=== PATIENT | male | born 1945 | race Caucasian/White ===

== ENCOUNTER 2020-12-05 15:00 | Outpatient (CLI) | payer MEDICARE, SELFPAY ==
--- NOTE | ~2020-12-05 | XR_ITS ---
EXAMINATION: XR shoulder LT min 2V DATE: 12/05/2020 15:31 INDICATION: Left shoulder pain TECHNIQUE: AP internally and externally rotated, AP oblique externally rotated and transscapular Y vi ews of the left shoulder were obtained. COMPARISON: None FINDINGS: Normal alignment. No fracture.Mild glenohumeral osteoarthritis with relatively preserved joint space . Small marginal osteophytes along the humeral head and glenoid. Moderate acromioclavicular joint ost eoarthritis with small inferiorly directed osteophytes. Visualized portions of the lungs are clear. S oft tissues are unremarkable. IMPRESSION: Mild glenohumeral and moderate acromioclavicular osteoarthritis. Reviewed, dictated and finalized at location B. FACER
--- NOTE | ~2020-12-05 | XR_ITS ---
EXAMINATION: XR chest 2V DATE: 12/05/2020 15:31 INDICATION: Shortness of breath post COVID. TECHNIQUE: PA and lateral views of the chest were obtained. COMPARISON: Chest radiograph dated 08/24/2019 FINDINGS: The lungs remain clear with no focal airspace opacities, pulmonary edema, pleural effusion or pneumot horax. The cardiomediastinal silhouette is normal. Mild to moderate thoracic spondylosis with chronic mild anterior wedging of a couple mid thoracic vertebral bodies. There are bridging osteophytes at m ultiple levels in the spine, consistent with diffuse idiopathic skeletal hyperostosis (DISH). IMPRESSION: 1. No acute cardiopulmonary disease. Reviewed, dictated and finalized at location B. L MOLDER
--- NOTE | ~2020-12-05 | XR_ITS ---
EXAMINATION:XR_[id number] DATE: 12/05/2020 15:31 INDICATION: Neck pain TECHNIQUE: AP, lateral, lateral swimmers and odontoid views of the cervical spine are provided. COMPARISON: None FINDINGS: Alignment is normal. The odontoid is intact. No fracture is identified. The vertebral body heights are normal. There is moderate loss of intervertebral disc space height throughout the cervica l spine. There is mild multilevel facet osteoarthritis. Prevertebral soft tissues are normal. IMPRESSION: 1. Mild to moderate cervical spondylosis without acute findings. Reviewed, dictated and finalized at location A. [employer]
[2020-12-05 19:00] LABS: CRP < 0.5 mg/dL (<1.0)
[2020-12-05 19:03] LABS: Erythrocyte Sedimentation Rate 7 mm/hr (0-20)
== END 2020-12-05 15:01 | disposition home or self-care (01) ==
LOC: ANHBWCIMG 15:03
PROVIDERS: PCP Family Medicine; Visit Provider Family Medicine
DX: F17.200 Nicotine dependence, unspecified, uncomplicated (principal); K13.79 Other lesions of oral mucosa; R51.9 Headache, unspecified; M47.22 Other spondylosis with radiculopathy, cervical region; M19.012 Primary osteoarthritis, left shoulder
CPT/HCPCS: 36415; 71046; 72040; 73030; 85652; 86140; 86695; 86696

== ENCOUNTER 2021-01-07 07:46 | Outpatient (CLI) | payer MEDICARE, SELFPAY ==
[2021-01-07 18:41] LABS: Basophils Percent Auto 0.5 % (0.2-1.2); Eosinophils Absolute Auto 0.1 K/mm3 (0-0.3); Eosinophils Percent Auto 1.3 % (0-4.4); Hematocrit 46.3 % (42.0-52.0); Hemoglobin 15.2 g/dL (14.0-18.0); Immature Granulocyte Absolute 0.02 K/mm3 (0.00-0.031); Immature Granulocyte Percent A 0.3 % (0-0.5); Lymphocytes Percent Auto 32.3 % (18.3-44.2); Mean Corpuscular HGB Conc 32.8 g/dl (32-36); Mean Corpuscular Hemoglobin 30.5 pg (26-34); Mean Corpuscular Volume 92.8 fl (80-100); Mean Platelet Volume 10.6 fl (7.4-10.4); Monocytes Absolute Auto 0.5 K/mm3 (0.1-0.6); Monocytes Percent Auto 6.7 % (2.6-8.5); Neutrophils Absolute Auto 4.4 K/mm3 (1.3-6.7); Neutrophils Percent Auto 58.9 % (45.5-73.1); Nucleated Red Blood Cells Perc 0.3 % (0.0-0.2); Platelet Count Result 216 k/mm3 (150-375); Red Blood Count 4.99 M/mm3 (4.6-6.20); Red Cell Distribution Width 14.6 % (11.5-14.5); White Blood Count 7.4 K/mm3 (4.5-10.0)
[2021-01-07 18:47] LABS: Add Urine Microscopic? YES; Appearance Urine Clear (Clear); Bilirubin Urine Negative (Negative); Blood Urine Negative (Negative); Color Urine Yellow (Yellow); Glucose Urine UA Negative (Negative); Ketones Urine Trace mg/dL (Negative); Leukocyte Esterase Ur Negative LEU/UL (Negative); Mucus Urine Rare /lpf; Nitrate Urine Negative (Negative); Protein Urine Negative (Negative); RBC Urine 0-2 /hpf (0-2); Specific Grav Ur 1.014 (1.001-1.035); Squamous Epithelial Cell Urine Rare /hpf (Few); Urobilinogen Urine Negative mg/dL (<2.0); WBC Urine 0-3 /hpf
[2021-01-07 18:49] LABS: Alanine Aminotransferase 16 U/L (4-50); Albumin Level 4.1 g/dL (3.5-5.1); Alkaline Phosphatase 83 U/L (38-126); Anion Gap 2 mmol/L (8-16); Aspartate Amino Transferase 24 U/L (17-59); Bilirubin,Total 0.7 mg/dL (0.2-1.3); Blood Urea Nitrogen 12 mg/dL (9-20); Calcium 8.9 mg/dL (8.4-10.2); Carbon Dioxide 29 mmol/L (22-30); Chloride 108 mmol/L (98-107); Cholesterol 155 mg/dL (0-200); Estimated Glomerular Filt Rate > 60; Glucose 94 mg/dL (75-110); HDL Direct 53 mg/dL; Potassium 4.6 mmol/L (3.4-5.0); Sodium 139 mmol/L (137-145); Triglycerides 57 mg/dL (<150)
[2021-01-07 19:05] LABS: Vitamin D 25 Hydroxy 47.1 ng/mL
[2021-01-07 19:06] LABS: LDL Cholesterol Direct 95 mg/dL
[2021-01-07 19:26] LABS: Prostate Specific Antigen 1.2 ng/mL (< OR = 4.0)
[2021-01-07 20:01] LABS: Folic Acid 12.8 ng/mL (2.76->20)
== END 2021-01-07 07:47 | disposition home or self-care (01) ==
PROVIDERS: PCP Family Medicine; Visit Provider Family Medicine
DX: R25.1 Tremor, unspecified (principal); F17.200 Nicotine dependence, unspecified, uncomplicated; R41.3 Other amnesia; R41.9 Unspecified symptoms and signs involving cognitive functions and awareness; Z13.9 Encounter for screening, unspecified; Z82.62 Family history of osteoporosis; Z79.899 Other long term (current) drug therapy; Z12.5 Encounter for screening for malignant neoplasm of prostate
CPT/HCPCS: 36415; 80053; 80061; 81001; 82306; 82607; 82746; 84153; 84443; 85025; G0103

== ENCOUNTER 2021-02-25 07:36 | Outpatient (CLI) | payer MEDICARE, SELFPAY ==
[2021-02-25 20:09] LABS: CRP 0.6 mg/dL (<1.0)
[2021-02-25 21:06] LABS: Erythrocyte Sedimentation Rate 5 mm/hr (0-20)
[2021-02-28 08:44] LABS: LH 4.8 mIU/mL (1.6-15.2)
[2021-02-28 13:27] LABS: Testosterone Free 46.6 pg/mL (30.0-135.0); Testosterone Total 405 ng/dL (250-1100)
[2021-02-28 16:40] LABS: EBV Nuclear Ab Interpretation Past; EBV Virus Capsid Ag IgG Ab >750.00 U/mL (<18.00); EBV Virus Capsid Ag IgM Ab <36.00 U/mL (<36.00)
== END 2021-02-25 07:37 | disposition home or self-care (01) ==
PROVIDERS: PCP Family Medicine; Visit Provider Family Medicine
DX: R41.9 Unspecified symptoms and signs involving cognitive functions and awareness (principal); N99.89 Other postprocedural complications and disorders of genitourinary system; R51.9 Headache, unspecified; R41.3 Other amnesia; R53.83 Other fatigue; M19.90 Unspecified osteoarthritis, unspecified site
CPT/HCPCS: 36415; 83002; 84402; 84403; 85652; 86140; 86664; 86665

== ENCOUNTER 2021-03-27 08:22 | Emergency (ER) | payer MEDICARE, SELFPAY ==
[2021-03-27] VITALS (14 sets, daily range): BP systolic 116–142; BP diastolic 75–94; PULSE 58–75; RESP 12–20; TEMP 36.9; O2SAT 98–100
--- NOTE | ~2021-03-27 | XR_ITS ---
EXAMINATION: XR chest 1V 03/27/2021 09:10 INDICATION: Dyspnea. PROCEDURE: PA view of the chest COMPARISON: 12/05/2020 FINDINGS: The lungs are clear. The cardiomediastinal silhouette is within normal limits. There are no pleural effusions. There is no pneumothorax suspected. IMPRESSION: 1: NO ACUTE CARDIOPULMONARY DISEASE. Reviewed, dictated and finalized at location B.
--- NOTE | ~2021-03-27 | CT_ITS ---
EXAMINATION: CT brain wo con DATE: 03/27/2021 09:07 INDICATION: Lump behind left ear TECHNIQUE: Computed tomography (CT) of the head was performed without intravenous contrast. The dose- length product was 681.00 mGy-cm. Automated exposure control and iterative reconstruction technique w ere employed. COMPARISON: None FINDINGS: No acute intracranial hemorrhage, infarction, mass or mass effect. No ventriculomegaly or m idline shift. Basilar cisterns are patent. There are scattered mild periventricular and subcortical w aleksandar matter changes, most likely related to small vessel ischemic disease (microangiopathy). No ventr iculomegaly or midline shift. Basilar cisterns are patent. There is mild mucosal thickening of the ri ght sphenoid sinus. Small left mastoid effusion. No depressed skull fracture. No mass identified johnny cent to the ears. IMPRESSION: 1. No acute intracranial abnormality. 2: Mild sinus disease. Small left mastoid effusion. Reviewed, dictated and finalized at location B.
--- NOTE | 2021-03-27 08:51 | ED.GENADULT ---
HPI - General Adult General Chief complaint: Unspecified Stated complaint: knot on back on head, causing headache Time Seen by Provider: 03/27/21 08:49 Source: patient, family and RN notes reviewed Mode of arrival: ambulatory Limitations: no limitations History of Present Illness HPI narrative: Patient 75 years old white male brought to the emergency room by his from home who is telling me that she noticed a lump behind left ear for the last 2 days. Patient denies any trauma, pain, fever, chills, nausea, vomiting, headache, or ear pain, Patient been feeling lousy since had COVID-19 infection November 2020. Patient been fully vaccinated for COVID-19 since December 2020. Patient does not take medicine at home. He smokes, drinks, does not use drugs. Related Data Allergies Allergy/AdvReac Type Severity Reaction Status Date / Time No Known Allergies Allergy Unverified 03/13/21 15:42 Review of Systems Review of Systems: Narrative: CONSTITUTIONAL: Denies fever, chills, or sweats. EYES: Denies visual changes, redness, or discharge. ENT: Denies rhinorrhea, congestion, sore throat, or otalgia. CARDIOVASCULAR: Denies chest pain, palpitations, or edema. RESPIRATORY: Denies cough or dyspnea. GASTROINTESTINAL: Denies abdominal pain, nausea, vomiting, or diarrhea. GENITOURINARY: Denies dysuria or hematuria. SKIN: Denies rash or itching. MUSCULOSKELETAL: Denies back pain, joint pain, or myalgia. NEUROLOGIC: Denies headache, numbness, or weakness. PSYCHIATRIC: Denies anxiety or depression. [facility] Past Medical History Medical History (Updated 03/27/21 @ 10:37 by Clarence Carlton MD) DISH (diffuse idiopathic skeletal hyperostosis) DISH (diffuse idiopathic skeletal hyperostosis) Surgical History Surgical History H/O hernia repair H/O knee surgery H/O shoulder surgery Family History Family History Father Family history of Parkinson's disease Social History Social History Smoking packs per day: 1 Smoking cigarettes per day: 20.0 Years smoked: 50 Smoking pack-years: 50.00 Smoking status: Current every day smoker Tobacco type: cigarettes Second hand tobacco smoke exposure: No Alcohol intake: never Substance use: current Exam Narrative: Exam Narrative: General appearance: Well-developed, well-nourished Skin: Normal color Head: Normocephalic, nontraumatic, large right mastoid area, no tenderness, no redness, no discharge, no warmth, no lymphadenopathy Eyes: Clear conjunctiva ENT: Oropharynx normal, ears normal, nose normal Neck: Supple, nontender Chest and respiratory: Airway patent, no respiratory distress, no accessory muscle use Heart: Regular rate/rhythm Abdomen: Soft, nontender, no organomegaly, quiet bowel sounds Vascular: Normal peripheral pulses, normal capillary refill. Musculoskeletal: Normal range of motion, nontender back Neurologic: Alert and oriented ?3, FAMILY MEDICINE PHYSICIAN ASSISTANT is normal as tested, no gross motor deficit Course Course Emergency Course: Stable Reevaluation(s) Reevaluation #1: Patient does not want to wait until we get hold of the ENT. My plan to discharge him on clindamycin and to follow-up with Dr. Abreu as outpatient. Date: 03/27/21 Time: 11:04 Vital Signs Vital signs: Vital Signs Pulse Rate 61 03/27/21 08:39 Respiratory Rate 20 03/27/21 08:39 Pulse Oximetry 100 03/27/21 08:39 Temperature 36.9 C 03/27/21 08:40 Pulse Rate 75 03/27/21 10:41 Respiratory Rate 12 03/27/21 10:41 Blood Pressure 142/77 H 03/27/21 10:41 Pulse Oximetry 98 06
[2021-03-27 09:50] LABS: Basophils Percent Auto 0.3 % (0.2-1.2); Eosinophils Absolute Auto 0.1 K/mm3 (0-0.3); Eosinophils Percent Auto 1.4 % (0-4.4); Hematocrit 45.7 % (42.0-52.0); Immature Granulocyte Percent A 1.4 % (0-0.5); Lymphocytes Absolute Auto 1.67 K/mm3 (0.9-3.2); Lymphocytes Percent Auto 23.1 % (18.3-44.2); Mean Corpuscular HGB Conc 32.8 g/dl (32-36); Mean Corpuscular Hemoglobin 30.1 pg (26-34); Mean Corpuscular Volume 91.8 fl (80-100); Monocytes Absolute Auto 0.6 K/mm3 (0.1-0.6); Monocytes Percent Auto 7.6 % (2.6-8.5); Neutrophils Absolute Auto 4.8 K/mm3 (1.3-6.7); Neutrophils Percent Auto 66.2 % (45.5-73.1); Platelet Count Result 162 k/mm3 (150-375); Red Blood Count 4.98 M/mm3 (4.6-6.20); Red Cell Distribution Width 13.9 % (11.5-14.5); White Blood Count 7.2 K/mm3 (4.5-10.0)
[2021-03-27 09:55] LABS: Alanine Aminotransferase 20 U/L (4-50); Albumin Level 4.5 g/dL (3.5-5.1); Alkaline Phosphatase 74 U/L (38-126); Anion Gap 8 mmol/L (8-16); Aspartate Amino Transferase 29 U/L (17-59); Bilirubin,Total 0.9 mg/dL (0.2-1.3); Blood Urea Nitrogen 13 mg/dL (9-20); Calcium 8.8 mg/dL (8.4-10.2); Carbon Dioxide 26 mmol/L (22-30); Chloride 107 mmol/L (98-107); Estimated CRCL calculation 73 ml/min; Estimated Glomerular Filt Rate > 60; Glucose 89 mg/dL (75-110); Potassium 3.9 mmol/L (3.4-5.0); Sodium 141 mmol/L (137-145)
--- NOTE | 2021-03-27 10:39 | PC.NURSE ---
ERP updated patient. Pt. is angry stating you guys aren't doing shit for me. I'm fucking leaving Pt. was told that they were being referred out to an ENT specialist for their left ear swelling. Pt. ripping themselves off the monitor continuing to swear at staff. Pt. told this will not be tolerated.
== END 2021-03-27 11:06 | disposition home or self-care (01) ==
PROVIDERS: Emergency Provider Emergency Medicine; PCP Family Medicine
DX: H74.92 Unspecified disorder of left middle ear and mastoid (principal); F17.210 Nicotine dependence, cigarettes, uncomplicated
CPT/HCPCS: 36415; 70450; 71045; 80053; 85025; 99284

== ENCOUNTER 2021-12-10 10:04 | Outpatient (CLI) | payer MEDICARE, SELFPAY ==
[2021-12-10 19:30] LABS: Hematocrit 46.9 % (42.0-52.0); Hemoglobin 15.6 g/dL (14.0-18.0); Mean Corpuscular HGB Conc 33.3 g/dl (32-36); Mean Corpuscular Hemoglobin 30.6 pg (26-34); Mean Platelet Volume 10.5 fl (7.4-10.4); Platelet Count Result 200 k/mm3 (150-375); Red Cell Distribution Width 13.6 % (11.5-14.5)
[2021-12-10 19:44] LABS: Alanine Aminotransferase 15 U/L (4-50); Albumin Level 4.4 g/dL (3.5-5.1); Alkaline Phosphatase 95 U/L (38-126); Anion Gap 6 mmol/L (8-16); Aspartate Amino Transferase 25 U/L (17-59); Bilirubin,Total 0.9 mg/dL (0.2-1.3); Blood Urea Nitrogen 7 mg/dL (9-20); Carbon Dioxide 28 mmol/L (22-30); Chloride 107 mmol/L (98-107); Cholesterol 167 mg/dL (0-200); Estimated Glomerular Filt Rate > 60; Glucose 86 mg/dL (65-110); HDL Direct 51 mg/dL; Potassium 4.6 mmol/L (3.4-5.0); Sodium 141 mmol/L (137-145); Triglycerides 87 mg/dL (<150)
[2021-12-10 19:54] LABS: LDL Cholesterol Direct 103 mg/dL
== END 2021-12-10 10:05 | disposition home or self-care (01) ==
PROVIDERS: PCP Family Medicine; Visit Provider Family Medicine
DX: R53.83 Other fatigue (principal); Z79.899 Other long term (current) drug therapy
CPT/HCPCS: 36415; 80053; 80061; 85027

== ENCOUNTER → 2021-12-30 13:44 | Outpatient (CLI) | payer MEDICARE, SELFPAY ==
--- NOTE | ~2021-12-30 | CT_ITS ---
EXAMINATION:CT lung screening DATE: 12/30/2021 14:04 INDICATION: Personal history of nicotine dependence. Current smoker with 50 pack year history. TECHNIQUE: Computed tomography (CT) of the chest was performed without intravenous contrast. Automate d exposure control and iterative reconstruction technique were employed. The dose-length product (DLP ) was 118.91 mGy-cm. COMPARISON: None. FINDINGS: There is moderate emphysema. There is mild atelectasis bilaterally. There is a 4 mm nodule in right middle lobe. There is a 7 mm nodule in right middle lobe. There is an 11 mm nodule in right upper lobe. No pleural effusion. The heart size is normal. There are coronary artery calcifications. No pericardial effusion. 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 There are bridging end plate osteophytes at multiple levels in the spine, consistent with diffuse idiopathic skeletal hypero stosis (DISH). There is mild chronic height loss of multiple vertebral bodies. IMPRESSION: 1. Lung-RADS category 4A: Suspicious. Consider PET/CT or 3-month follow-up noncontrast low-dose chest CT. Reviewed, dictated and finalized at location A. IMPRESSION: 1. Lung-RADS category 4A: Suspicious. Consider PET/CT or 3-month follow-up nonc ontrast low-dose chest CT.
== END ==
PROVIDERS: PCP Family Medicine; Visit Provider Family Medicine
DX: Z12.2 Encounter for screening for malignant neoplasm of respiratory organs (principal); Z87.891 Personal history of nicotine dependence
CPT/HCPCS: 71271

== ENCOUNTER 2022-12-22 08:05 | Outpatient (CLI) | payer MEDICARE, SELFPAY ==
[2022-12-22 19:36] LABS: Alanine Aminotransferase 23 U/L (6-50); Albumin Level 4.1 g/dL (3.5-5.1); Alkaline Phosphatase 98 U/L (38-126); Anion Gap 5 mmol/L (8-16); Aspartate Amino Transferase 59 U/L (17-59); Bilirubin,Total 0.9 mg/dL (0.2-1.3); Blood Urea Nitrogen 9 mg/dL (9-20); Calcium 8.6 mg/dL (8.4-10.2); Carbon Dioxide 27 mmol/L (22-30); Chloride 108 mmol/L (98-107); Cholesterol 181 mg/dL (0-200); Estimated Glomerular Filt Rate > 60; Glucose 90 mg/dL (65-110); HDL Direct 46 mg/dL; Potassium 4.1 mmol/L (3.4-5.0); Sodium 140 mmol/L (137-145); Triglycerides 82 mg/dL (<150)
[2022-12-22 19:38] LABS: Basophils Absolute Auto 0.1 K/mm3 (0.0-0.1); Basophils Percent Auto 0.8 % (0.2-1.2); Eosinophils Absolute Auto 0.2 K/mm3 (0-0.3); Eosinophils Percent Auto 2.3 % (0-4.4); Hematocrit 43.6 % (42.0-52.0); Immature Granulocyte Absolute 0.02 K/mm3 (0.00-0.031); Immature Granulocyte Percent A 0.3 % (0-0.5); Lymphocytes Absolute Auto 2.07 K/mm3 (0.9-3.2); Mean Corpuscular HGB Conc 32.1 g/dl (32-36); Mean Corpuscular Hemoglobin 28.6 pg (26-34); Mean Platelet Volume 10.4 fl (7.4-10.4); Monocytes Absolute Auto 0.5 K/mm3 (0.1-0.6); Neutrophils Absolute Auto 3.7 K/mm3 (1.3-6.7); Neutrophils Percent Auto 56.6 % (45.5-73.1); Platelet Count Result 167 k/mm3 (150-375); Red Cell Distribution Width 14.5 % (11.5-14.5); White Blood Count 6.5 K/mm3 (4.5-10.0)
[2022-12-22 19:47] LABS: LDL Cholesterol Direct 105 mg/dL
[2022-12-22 20:06] LABS: Prostate Specific Antigen 1.2 ng/mL (< OR = 4.0)
== END 2022-12-22 08:06 | disposition home or self-care (01) ==
PROVIDERS: PCP Family Medicine; Visit Provider Family Medicine
DX: C34.90 Malignant neoplasm of unspecified part of unspecified bronchus or lung (principal); L57.0 Actinic keratosis; M48.10 Ankylosing hyperostosis [Forestier], site unspecified; M54.12 Radiculopathy, cervical region; R25.1 Tremor, unspecified; R41.3 Other amnesia; R49.0 Dysphonia; R91.1 Solitary pulmonary nodule; Z87.891 Personal history of nicotine dependence; Z12.5 Encounter for screening for malignant neoplasm of prostate; Z79.899 Other long term (current) drug therapy
CPT/HCPCS: 36415; 80053; 80061; 84153; 85025; G0103